=== PATIENT | male | born 1970 | race Caucasian/White ===

== ENCOUNTER → 2018-01-15 09:56 | Outpatient (CLI) | payer BC, SELFPAY ==
--- NOTE | 2018-01-15 | DI.CT.S_ITS ---
PROCEDURE: CT LUMBAR SPINE WO CON INDICATIONS: LUMBAR REGION SPINAL STENOSIS TECHNIQUE: Noncontrast 3 mm thick sections acquired from the T12 level to the sacrum. Sagittal and coronal reformats were constructed. For radiation dose reduction, the following was used: automated exposure control. COMPARISON: [facility], MR, L-SPINE WITHOUT CONTRAST, 11/09/2017, 12:32. [facility] [place], CR, SPINE LUMB 2 OR 3VW, 06/04/2017, 13:37. [facility], CT, L-SPINE WITHOUT CONTRAST, 04/21/2017, 9:07. FINDINGS: Image quality: Diagnostic. Bones: There are 5 lumbar-type vertebral bodies. The lowest intervertebral disk space is designated as L5-S1. The vertebral body heights are well-maintained without evidence to suggest an acute compression fracture. The bone mineralization is within normal limits. No surgical changes are again evident related to an L4-S1 discectomy and fusion procedure. Interbody spacers are noted at the levels of L4-L5 and L5-S1. Bilateral transpedicular screws are fixed in place by a posterior fixation rods at the levels of L4 and L5. A unilateral right pedicle screw is seen at the S1 level, connected to the posterior fixation calista. The pedicle screw at the S1 level on the left is fractured and abandoned without connecting to the posterior fixation calista, unchanged since 04/21/17. Orthopedic hardware is intact and unchanged. Bony alignment through this region also is unchanged. The degree of degenerative changes involving the lumbar spine have not significantly progressed. No obvious disc protrusions or extrusions are evident. Scattered small posterior disc bulges appear to be grossly similar to the previous examination. There are soft tissue areas of neural foraminal narrowing, probably unchanged. The central canal appears to be grossly unchanged, as well since the prior CT. Soft tissues: The soft tissues of the imaged abdomen and pelvis are within normal limits. IMPRESSION: 1. Unchanged alignment and appearance of the orthopedic hardware, status post L4-S1 discectomy and fusion. 2. The degree of degenerative changes of the lumbar spine have not significantly progressed in the interim. Dictated by: Sedrick Connors M.D. on 01/15/2018 at 9:53 Approved by: Sedrick Connors M.D. on 01/15/2018 at 10:01
== END ==
PROVIDERS: Family Provider Physician Assistant Medical; PCP Physician Assistant Medical; Visit Provider Orthopaedic Surgery
DX: M48.061 Spinal stenosis, lumbar region without neurogenic claudication (principal); Z98.1 Arthrodesis status
CPT/HCPCS: 72131

== ENCOUNTER → 2018-02-23 13:06 | Outpatient (CLI) | payer BC, SELFPAY ==
--- NOTE | 2018-02-23 | DI.US.S_ITS ---
PROCEDURE: US RENAL COMPLETE INDICATIONS: FLANK PAIN TECHNIQUE: Real-time scanning was performed of the kidneys and bladder, with image documentation. COMPARISON: [facility], CT, CT LUMBAR SPINE WO CON, 01/15/2018, 9:57. FINDINGS: Kidneys: Kidneys are normal in size. Right kidney measures 11.8 cm long; left kidney measures 12.4 cm long. Right renal cortical thickness is 1.5 cm; left renal cortical thickness is 2.1 cm. Renal cortical echotexture is normal. No hydronephrosis or nephrolithiasis. No suspicious solid mass lesions. Bladder: Pre-void bladder volume is 202 mL. Post-void residual is 13 mL. Pre-void images demonstrate no intraluminal masses or stones. On pre-void images, the right ureteral jet is noted with color Doppler interrogation. (Of note, ureteral jets may not be detectable in up to 25% of cases due to insufficient differences in specific gravity between ureteral and bladder urine). Miscellaneous: No free pelvic fluid. IMPRESSION: Unremarkable kidneys and bladder. No hydronephrosis. Dictated by: Sedrick Connors M.D. on 02/23/2018 at 14:30 Approved by: Sedrick Connors M.D. on 02/23/2018 at 14:32
== END ==
PROVIDERS: Family Provider Physician Assistant Medical; PCP Physician Assistant Medical; Visit Provider Physical Medicine & Rehabilitation
DX: R10.9 Unspecified abdominal pain (principal)
CPT/HCPCS: 76770

== ENCOUNTER 2018-06-19 03:42 | Emergency (ER) | payer BC, SELFPAY ==
[2018-06-19 03:52] VITALS: BP 135/76; PULSE 67; RESP 18; TEMP 36.7; O2SAT 100; BMI 31.2
--- NOTE | 2018-06-19 03:54 | ED.BACK ---
HPI - Back Pain/Injury General Chief Complaint: Back Pain/Injury Stated Complaint: lower/side back pain previous surgeries Time Seen by Provider: 06/19/18 03:45 Source: patient Mode of arrival: ambulatory Limitations: no limitations History of Present Illness HPI Narrative: Patient is a 48-year-old male here for evaluation of 1 month of right sided pain and lower back pain. He states that has been going on for the past month. No trauma. Has been seen by [facility] on May 15 and also on June 12 for the symptoms. He states he had a CT scan done there which she was informed was ?normal? patient does have lower back pain. Has had 3 prior lower back surgeries since 2016. He has also seen a provider at [facility] for ?liver and kidneys ?he states that he was told that he needs to see pain management however he states that he knows his body and states that this is not a pain management issue. He does see a provider down at [facility] as a primary provider. No urinary symptoms. No change in bowel. No skin changes. Came in this morning because he states that he is in pain. Related Data Previous Rx's Medication Instructions Recorded hydroxyzine pamoate 25 - 50 mg PO Q4-6HP PRN #90 cap 05/22/17 oxycodone 1 - 2 tab PO Q4-6HP PRN #90 tab 05/22/17 celecoxib [Celebrex] 100 mg PO BID #30 cap 06/19/18 cyclobenzaprine 10 mg PO TID PRN #12 tab 06/19/18 lidocaine [Lidoderm] 1 patch TOP DAILY #15 each 06/19/18 prednisone 20 mg PO DAILY #5 tab 06/19/18 Allergies Allergy/AdvReac Type Severity Reaction Status Date / Time No Known Drug Allergies Allergy Verified 06/19/18 03:55 Review of Systems Constitutional Denies fever(s) and Denies headache(s) ENT Ears, Nose, Mouth, and Throat: Denies vertigo, Denies dizziness and Denies headache(s) Cardiovascular Denies chest pain, Denies syncope and Denies dyspnea Respiratory Denies dyspnea Gastrointestinal Gastrointestinal: Denies constipation, Denies diarrhea, Denies nausea and Denies vomiting Genitourinary Denies dysuria, Denies urinary frequency, Denies urinary hesitancy and Denies urinary incontinence Musculoskeletal Reports abnormal gait, Reports back pain and Denies numbness Integumentary/Breasts Denies lesions and Denies rash Neurologic Reports abnormal gait, Denies vertigo, Denies dizziness, Denies syncope, Denies headache(s) and Denies numbness Hematologic/Lymphatic Denies easy bleeding and Denies easy bruising [facility] Medical History Chronic lower back pain (Acute) Surgical History History of lumbar spinal fusion (Acute) Exam Initial Vital Signs Initial Vital Signs: Vital Signs Temperature 98.0 F 06/19/18 03:52 Pulse Rate 67 06/19/18 03:52 Respiratory Rate 18 06/19/18 03:52 Blood Pressure 135/76 06/19/18 03:52 Pulse Oximetry 100 06/19/18 03:52 Const General: cooperative, well developed, well groomed and No acute distress Orientation: alert, awake and oriented x3 HENMT Head: normal to inspection and normocephalic Resp Effort & Inspection: normal respiratory effort GI Inspection: non-distended Palpation: soft, No firm and No tender Back/Spine/Pelvis Back: CVA tenderness right Skin Lesions: no lesions Rashes: no rashes Neuro General: alert, awake and oriented x3 Extrem General: capillary refill normal Psych Appearance: grossly normal and well kempt Course Orders Ordered: Discontinued Medications Hydromorphone HCl (Dilaudid) 1 mg IM NOW ONE Stop: 06/19/18 04:15 Last Admin: 06/19/18 04:35 Dose: 1 mg Ketorolac Tromethamine (Toradol) 30 mg IM NOW ONE Stop: 06/19/18 04:15 Last Admin: 06/19/18 04:34 Dose: 30 mg Vital Signs - 8 hr 06/19/18 03:52 Temperature 98.0 F Pulse Rate 67 Respiratory Rate 18 Blood Pressure 135/76 Pulse Oximetry 100 MDM - Back Pain/Injury MDM Narrative Medical decision making narrative: Patient with 1 month of symptoms. Has had lower back pain for several years now. Has been seen by an outside facility the patient states that he has had a CT scan of his abdomen which he reports is normal. This was not available for my review. Describes no new trauma. Has a fairly benign exam. No symptoms consistent with cauda equina. Informed patient that he needed to discuss with his back surgeon or his primary doctor the indications for an MRI if they feel like he needs them. I also informed him that pain management is not an unreasonable course from this point forward. Informed him that it is unlikely that I would get him symptom free or come up with a definitive diagnosis here in the emergency department. Informed him that anti-inflammatories should be the mainstay of his treatment. Will send home with prescription for Celebrex. Also sent home with a prescription for lidocaine patches. Informed him that he needs to stay as active as possible. He was given return precautions. Discharge Plan Departure Patient Disposition: Home Clinical Impression: Back pain Instructions: Back Pain (Alternative Therapy), DI for Low Back Pain, Activity May Be Better then Rest for Low Back Pain Recovery, Exercise May Reduce Risk of Low Back Pain Activity Restrictions/Additional Instructions: You do need to talk with your primary care doctor about long-term pain management. These types of medications need to come from 1 provider which can either be your primary care doctor or a size painter. I highly recommend you contact your back surgeon to discuss your symptoms. Return to the emergency department for any new symptoms. Prescriptions: New cyclobenzaprine 10 mg tablet 10 mg PO TID PRN (Reason: muscle spasm) Qty: 12 RF: 0 lidocaine [Lidoderm] 5 % adhesive patch,medicated 1 patch TOP DAILY Qty: 15 RF: 0 celecoxib [Celebrex] 100 mg capsule 100 mg PO BID Qty: 30 RF: 0 prednisone 20 mg tablet 20 mg PO DAILY Qty: 5 RF: 0 No Action oxycodone 5 MG tablet 1 - 2 tab PO Q4-6HP PRNQty: 90 RF: 0 hydroxyzine pamoate 25 MG capsule 25 - 50 mg PO Q4-6HP PRNQty: 90 RF: 0
[2018-06-19] MEDS: KETOROLAC 60 MG/2 ML VIAL 30 MG IM (04:34)
[2018-06-19] MEDS: HYDROMORPHONE 2 MG INJ 1 MG IM (04:35)
[2018-06-19 05:25] VITALS: BP 141/79; PULSE 62; RESP 18; TEMP 36.2; O2SAT 97
--- NOTE | 2018-06-24 15:47 | PC.NURSE ---
Called for pt follow up,no answer
== END 2018-06-19 05:25 | disposition home or self-care (01) ==
PROVIDERS: Emergency Provider Emergency Medicine; Family Provider Physician Assistant Medical; PCP Physician Assistant Medical
DX: M54.9 Dorsalgia, unspecified (principal)
CPT/HCPCS: 96372; 99282; 99283; J1170; J1885

== ENCOUNTER 2018-09-25 09:06 | Emergency (ER) | payer BC, SELFPAY ==
[2018-09-25 09:20] VITALS: BP 143/72; PULSE 64; RESP 18; TEMP 36.3; O2SAT 100
[2018-09-25 09:25] VITALS: BP 143/72; PULSE 64; RESP 18; TEMP 36.3; O2SAT 100
--- NOTE | 2018-09-25 09:41 | ED.BACK ---
HPI - Back Pain/Injury General Chief Complaint: Back Pain/Injury Stated Complaint: BACK PAIN Time Seen by Provider: 09/25/18 09:27 Source: patient Mode of arrival: wheelchair Limitations: no limitations History of Present Illness HPI Narrative: The patient is a 48-year-old male presenting with acute on chronic back pain. He had surgery in 2016 he has had flares off and on since then. He occasionally has numbness in both legs but does not have it now. He has no changes in bowel or bladder habits. He has had progressive worsening of this pain ongoing for the last 2 weeks. Definitely worse over the last 3 days. He has not had any fever. He has been taking ibuprofen and on. He does work and walk a lot no heavy lifting. MD Complaint: back pain Related Data Home Medications Medication Instructions Recorded Confirmed duloxetine 30 mg capsule,delayed 30 mg PO DAILY 09/25/18 09/25/18 release Previous Rx's Medication Instructions Recorded cyclobenzaprine 10 mg PO TID PRN #14 tab 09/25/18 hydrocodone-acetaminophen [[place]] 1 tab PO Q4-6H PRN #10 tab 09/25/18 meloxicam [Mobic] 7.5 mg PO DAILY #20 tab 09/25/18 Allergies Allergy/AdvReac Type Severity Reaction Status Date / Time No Known Drug Allergies Allergy Verified 09/25/18 08:39 Review of Systems Review of Systems GENERAL: Denies chills,fever HEENT: Denies throat pain RESPIRATORY: Denies dyspnea, cough, wheezing CARDIOVASCULAR: Denies chest pain, palpitations GASTROINTESTINAL: Denies nausea, vomiting MUSCULOSKELETAL: See HPI SKIN: No rash, no laceration, no pruritus NEUROLOGIC: Denies weakness, dizziness, headache, numbness 8 point review of systems is negative except for those stated above and HPI [facility] Social History Smoking Status: Never smoker Exam Initial Vital Signs Initial Vital Signs: Vital Signs Temperature 97.3 F L 09/25/18 09:20 Pulse Rate 64 09/25/18 09:20 Respiratory Rate 18 09/25/18 09:20 Blood Pressure 143/72 H 09/25/18 09:20 Pulse Oximetry 100 09/25/18 09:20 GENERAL: Lying on bed appears uncomfortable HEENT: Head atraumatic,EOMI, pupils reactive, CARDIOVASCULAR: Regular rate and rhythm without murmurs, rubs or gallops. RESPIRATORY: Breath sounds equal bilaterally, no wheezes rales or rhonchi. ABDOMEN: Soft, nontender. Normoactive bowel sounds all 4 quadrants. No guarding or rebound. BACK: L2 through L4 pain and bilateral paraspinal muscles as well EXTREMITIES: Normal range of motion, no clubbing or edema. Neurovascularly intact NEUROLOGICAL: Alert and oriented x4.Normal gait and speech. Cranial nerves II through XII grossly intact. Sensation in lower extremities intact able to move extremity SKIN: Warm, dry, no laceration, no petechiae, no rashes or lesions. Course Orders Ordered: Discontinued Medications Cyclobenzaprine HCl (Flexeril) 10 mg PO NOW ONE Stop: 09/25/18 09:40 Last Admin: 09/25/18 09:44 Dose: 10 mg Hydromorphone HCl (Dilaudid) 1 mg SUBCUT NOW ONE Stop: 09/25/18 10:12 Last Admin: 09/25/18 10:43 Dose: 1 mg Ketorolac Tromethamine (Toradol) 60 mg IM NOW ONE Stop: 09/25/18 09:40 Last Admin: 09/25/18 09:44 Dose: 60 mg Vital Signs - 8 hr 09/25/18 09:20 09/25/18 09:25 09/25/18 10:58 Temperature 97.3 F L 97.3 F L 98.1 F Pulse Rate 64 64 63 Respiratory Rate 18 18 13 Blood Pressure 143/72 H 143/72 H 132/64 Blood Pressure [Left Arm] Pulse Oximetry 100 100 99 09/25/18 11:01 Temperature Pulse Rate 60 Respiratory Rate Blood Pressure Blood Pressure [Left Arm] 132/64 Pulse Oximetry MDM - Back Pain/Injury MDM Narrative Medical decision making narrative: At this time patient has no focal deficits. He is tender but he has no numbness tingling or weakness in his lower extremities. At the seems to be acute on chronic exacerbation of back pain. He has no fever. I did recommend outpatient MRI at this time he does not meet emergency criteria for imaging. Pain improved after Dilaudid Discharge Plan Departure Patient Disposition: Home Clinical Impression: Acute exacerbation of chronic low back pain Discharge Date/Time: 09/25/18 11:12 Interventions: ED Discharge Assessment Last Done: 09/25/18 11:12 Instructions: Back Pain (Alternative Therapy), Low Back Pain Activity Restrictions/Additional Instructions: *You have been diagnosed with acute on chronic back pain *What to do: If pain continues he may require outpatient MRI *Continue to take medications as directed: FAXED TO [facility] [place] Mobic 7.5 mg once a day with food do not combine or take with other NSAIDs such as Motrin, ibuprofen, Aleve, Advil, naproxen etc Flexeril 1-2 tablets every 8 hr if needed for muscle spasm [place] 1 tablet every 6 hr if needed for severe pain *Follow up with your primary care provider in 2-3 days *Return to ER if you should have numbness, tingling, weakness in lower extremities or any new, worsening or concerning symptoms CONTROLLED SUBSTANCE DISCHARGE (Narcotoic/benzodiazepine/Flexeril/Phenergan) 1. You have been prescribed narcotic medications, it does have acetaminophen/Tylenol/paracetamol in it so do not take extra Tylenol or Tylenol containing products 2. Please understand that we cannot provide further refills of narcotics, benzodiazepines or controlled substances through the ED and her pain management will need to be through your provider. 3. While on these medications you cannot drive or operate heavy machinery. 4. You cannot sign legal documents or perform any duties such as this. 5. As long as you're taking opiate pain medications he should also be taking a stool softener such as Colace, Dulcolax, MiraLAX or prune juice, to help avoid constipation. Prescriptions: New meloxicam [Mobic] 7.5 mg tablet 7.5 mg PO DAILY Qty: 20 RF: 0 cyclobenzaprine 5 mg tablet 10 mg PO TID PRN (Reason: muscle spasm) Qty: 14 RF: 0 hydrocodone-acetaminophen [[place]] 7.5-325 mg tablet 1 tab PO Q4-6H PRN (Reason: pain) Qty: 10 RF: 0 No Action duloxetine 30 mg capsule,delayed release(DR/EC) 30 mg PO DAILY RF: 0 Referrals: Gail Guzmán PA-C [Primary Care Provider] -
[2018-09-25] MEDS: KETOROLAC 60 MG/2 ML VIAL IM (09:44)
[2018-09-25] MEDS: CYCLOBENZAPRINE 10 MG TABLET PO (09:44)
--- NOTE | 2018-09-25 09:47 | ED_ITS ---
HPI - Back Pain/Injury General Chief Complaint: Back Pain/Injury Stated Complaint: BACK PAIN Time Seen by Provider: 09/25/18 09:27 Source: patient Mode of arrival: wheelchair Limitations: no limitations History of Present Illness HPI Narrative: The patient is a 48-year-old male presenting with acute on chronic back pain. He had surgery in 2016 he has had flares off and on since then. He occasionally has numbness in both legs but does not have it now. He has no changes in bowel or bladder habits. He has had progressive worsening of this pain ongoing for the last 2 weeks. Definitely worse over the last 3 days. He has not had any fever. He has been taking ibuprofen and on. He does work and walk a lot no heavy lifting. MD Complaint: back pain Related Data Home Medications Medication Instructions Recorded Confirmed duloxetine 30 mg capsule,delayed 30 mg PO DAILY 09/25/18 09/25/18 release Previous Rx's Medication Instructions Recorded cyclobenzaprine 10 mg PO TID PRN #14 tab 09/25/18 hydrocodone-acetaminophen [[place]] 1 tab PO Q4-6H PRN #10 tab 09/25/18 meloxicam [Mobic] 7.5 mg PO DAILY #20 tab 09/25/18 Allergies Allergy/AdvReac Type Severity Reaction Status Date / Time No Known Drug Allergies Allergy Verified 09/25/18 08:39 Review of Systems Review of Systems GENERAL: Denies chills,fever HEENT: Denies throat pain RESPIRATORY: Denies dyspnea, cough, wheezing CARDIOVASCULAR: Denies chest pain, palpitations GASTROINTESTINAL: Denies nausea, vomiting MUSCULOSKELETAL: See HPI SKIN: No rash, no laceration, no pruritus NEUROLOGIC: Denies weakness, dizziness, headache, numbness 8 point review of systems is negative except for those stated above and HPI [facility] Social History Smoking Status: Never smoker Exam Initial Vital Signs Initial Vital Signs: Vital Signs Temperature 97.3 F L 09/25/18 09:20 Pulse Rate 64 09/25/18 09:20 Respiratory Rate 18 09/25/18 09:20 Blood Pressure 143/72 H 09/25/18 09:20 Pulse Oximetry 100 09/25/18 09:20 GENERAL: Lying on bed appears uncomfortable HEENT: Head atraumatic,EOMI, pupils reactive, CARDIOVASCULAR: Regular rate and rhythm without murmurs, rubs or gallops. RESPIRATORY: Breath sounds equal bilaterally, no wheezes rales or rhonchi. ABDOMEN: Soft, nontender. Normoactive bowel sounds all 4 quadrants. No guarding or rebound. BACK: L2 through L4 pain and bilateral paraspinal muscles as well EXTREMITIES: Normal range of motion, no clubbing or edema. Neurovascularly intact NEUROLOGICAL: Alert and oriented x4.Normal gait and speech. Cranial nerves II through XII grossly intact. Sensation in lower extremities intact able to move extremity SKIN: Warm, dry, no laceration, no petechiae, no rashes or lesions. Course Orders Ordered: Discontinued Medications Cyclobenzaprine HCl (Flexeril) 10 mg PO NOW ONE Stop: 09/25/18 09:40 Last Admin: 09/25/18 09:44 Dose: 10 mg Hydromorphone HCl (Dilaudid) 1 mg SUBCUT NOW ONE Stop: 09/25/18 10:12 Last Admin: 09/25/18 10:43 Dose: 1 mg Ketorolac Tromethamine (Toradol) 60 mg IM NOW ONE Stop: 09/25/18 09:40 Last Admin: 09/25/18 09:44 Dose: 60 mg Vital Signs - 8 hr 09/25/18 09:20 09/25/18 09:25 09/25/18 10:58 Temperature 97.3 F L 97.3 F L 98.1 F Pulse Rate 64 64 63 Respiratory Rate 18 18 13 Blood Pressure 143/72 H 143/72 H 132/64 Blood Pressure [Left Arm] Pulse Oximetry 100 100 99 09/25/18 11:01 Temperature Pulse Rate 60 Respiratory Rate Blood Pressure Blood Pressure [Left Arm] 132/64 Pulse Oximetry MDM - Back Pain/Injury MDM Narrative Medical decision making narrative: At this time patient has no focal deficits. He is tender but he has no numbness tingling or weakness in his lower extremities. At the seems to be acute on chronic exacerbation of back pain. He has no fever. I did recommend outpatient MRI at this time he does not meet emergency criteria for imaging. Pain improved after Dilaudid Discharge Plan Departure Patient Disposition: Home Clinical Impression: Acute exacerbation of chronic low back pain Discharge Date/Time: 09/25/18 11:12 Interventions: ED Discharge Assessment Last Done: 09/25/18 11:12 Instructions: Back Pain (Alternative Therapy), Low Back Pain Activity Restrictions/Additional Instructions: *You have been diagnosed with acute on chronic back pain *What to do: If pain continues he may require outpatient MRI *Continue to take medications as directed: FAXED TO [facility] [place] Mobic 7.5 mg once a day with food do not combine or take with other NSAIDs such as Motrin, ibuprofen, Aleve, Advil, naproxen etc Flexeril 1-2 tablets every 8 hr if needed for muscle spasm [place] 1 tablet every 6 hr if needed for severe pain *Follow up with your primary care provider in 2-3 days *Return to ER if you should have numbness, tingling, weakness in lower extremities or any new, worsening or concerning symptoms CONTROLLED SUBSTANCE DISCHARGE (Narcotoic/benzodiazepine/Flexeril/Phenergan) 1. You have been prescribed narcotic medications, it does have acetaminophen/ Tylenol/paracetamol in it so do not take extra Tylenol or Tylenol containing products 2. Please understand that we cannot provide further refills of narcotics, benzodiazepines or controlled substances through the ED and her pain management will need to be through your provider. 3. While on these medications you cannot drive or operate heavy machinery. 4. You cannot sign legal documents or perform any duties such as this. 5. As long as you're taking opiate pain medications he should also be taking a stool softener such as Colace, Dulcolax, MiraLAX or prune juice, to help avoid constipation. Prescriptions: New meloxicam [Mobic] 7.5 mg tablet 7.5 mg PO DAILY Qty: 20 RF: 0 cyclobenzaprine 5 mg tablet 10 mg PO TID PRN (Reason: muscle spasm) Qty: 14 RF: 0 hydrocodone-acetaminophen [[place]] 7.5-325 mg tablet 1 tab PO Q4-6H PRN (Reason: pain) Qty: 10 RF: 0 No Action duloxetine 30 mg capsule,delayed release(DR/EC) 30 mg PO DAILY RF: 0 Referrals: Gail Guzmán PA-C [Primary Care Provider] -
[2018-09-25] MEDS: HYDROMORPHONE 2 MG INJ 1 MG SUBCUT (10:43)
[2018-09-25 10:58] VITALS: BP 132/64; PULSE 63; RESP 13; TEMP 36.7; O2SAT 99
[2018-09-25 11:01] VITALS: BP 132/64; PULSE 60
== END 2018-09-25 11:12 | disposition home or self-care (01) ==
PROVIDERS: Emergency Provider Emergency Medicine; Family Provider Physician Assistant Medical; PCP Physician Assistant Medical
DX: M54.5 Low back pain (principal)
CPT/HCPCS: 96372; 99283; J1170; J1885

== ENCOUNTER → 2023-04-06 10:06 | Outpatient (CLI) | payer OTHER, SELFPAY ==
--- NOTE | 2023-04-06 10:07 | DI.RAD.S_ITS ---
PROCEDURE: XR LUMBAR SPINE MIN 4V INDICATIONS: BACK PAIN TECHNIQUE: 5 views of the lumbar spine were acquired, including bilateral oblique views. COMPARISON: [facility], CR, L-SPINE 2-3 VIEWS, 05/21/2017, 13:52. [facility], CR, L-SPINE 2-3 VIEWS, 01/23/2017, 8:53. FINDINGS: Bones: 5 nonrib-bearing vertebrae are present. Posterior surgical fusion, L4 through S1. Interbody fusion at L4-5 and L5-S1. Grade 1 retrolisthesis of L3 on L4 and L1 on L2. Moderate disc height loss L1-2, L3-4. Mild disc height loss at L2-3. Soft tissues: Overlying bowel gas pattern is normal. No suspicious soft tissue calcifications. Oblique images: No pars defects. IMPRESSION: Posterior and interbody surgical fusion L4 through S1, without hardware complication. Dictated by: Dionte Pimentel M.D. on 04/06/2023 at 10:42 Approved by: Dionte Pimentel M.D. on 04/06/2023 at 10:44
== END ==
PROVIDERS: Family Provider Physician Assistant Medical; PCP Physician Assistant; Referring Provider Physical Medicine & Rehabilitation; Visit Provider Physical Medicine & Rehabilitation
DX: M48.061 Spinal stenosis, lumbar region without neurogenic claudication (principal); Z98.1 Arthrodesis status
CPT/HCPCS: 72110